=== PATIENT | female | born 1955 | race Caucasian/White ===

== ENCOUNTER → 2016-07-28 | Day surgery (SDC) | payer BC ==
[~2016-07-28] MED LIST: Lactated Ringers 1,000 ML IV SCH
[2016-07-28 11:10] VITALS: BP 146/69
--- NOTE | 2016-07-31 07:20 | OR ---
DATE OF OPERATION: 07/28/2016 PREOPERATIVE DIAGNOSIS: SCREENING COLONOSCOPY. POSTOPERATIVE DIAGNOSIS: SCREENING COLONOSCOPY. SURGEON: Regulo Nguyen MD PROCEDURE: FULL-LENGTH COLONOSCOPY WITH SNARE POLYPECTOMY X1. 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 COMPLICATIONS: None. SPECIMEN: Cecal tubular adenoma. FINDINGS: 1. Full-length colonoscopy. 2. Extremely poor prep. 3. Cecal polyp tubular adenoma, less than 0.5 cm. RECOMMENDATIONS: Follow up colonoscopy in five years. INDICATIONS: The patient has had a prior colonoscopy 10 years ago. She was recommended to have a followup screening. DESCRIPTION OF PROCEDURE: The patient was prepped and draped, placed in the left lateral decubitus position. A lubricated Olympus colonoscope was inserted and relatively easily advanced to the cecum. The patient had extremely poor bowel prep especially in the right colon. We irrigated through the cecum and many times we were able to see a polyp in just outside the cecal pouch, was inside a haustral fold, quite deep, it was a smaller tubular adenoma less than 0.5 cm removed with a snare and we were able to suction into the polyp in the trap number one. She did have a lot of persistent stool coming from the valve which made it difficult to see after removal, but we do have the polyp in the trap. We could see in the rest of the ascending and transverse colon. There were no other gross abnormalities or polyps, although it was difficult due to the amount of stool. The left side of the colon showed no signs of any polyps, mass, ulceration, or bleeding sites. There were no vascular abnormalities or signs of colitis. The patient had no further polyp formation that we could find on the left colon, but she does have mild to moderate sigmoid diverticular disease without inflammatory change. The rectal vault appeared benign. Retroflexion of the scope in the rectum showed no anal lesions. Air was then suctioned and scope removed without complication. KAREEN/YARA /[id number]
== END ==
LOC: CC.SDS 08:33
PROVIDERS: ATTEND Family Medicine
DX: Z12.11 Encounter for screening for malignant neoplasm of colon (principal); K57.30 Diverticulosis of large intestine without perforation or abscess without bleeding; I10 Essential (primary) hypertension; E78.5 Hyperlipidemia, unspecified; J18.9 Pneumonia, unspecified organism; E55.9 Vitamin D deficiency, unspecified; E04.1 Nontoxic single thyroid nodule; E66.9 Obesity, unspecified; Z88.8 Allergy status to other drugs, medicaments and biological substances; Z79.899 Other long term (current) drug therapy; Z98.890 Other specified postprocedural states; Z72.0 Tobacco use
CPT/HCPCS: 45385; J7120

== ENCOUNTER 2018-01-27 07:08 | Emergency (ER) | payer BC ==
[~2018-01-27 07:08] MED LIST changes: +Albuterol/Ipratropium 3.0-0.5 MG/3 ML Neb Soln NEB ONE; -Lactated Ringers 1,000 ML IV SCH
[2018-01-27] MEDS ORDERED: Albuterol/Ipratropium 3.0-0.5 MG/3 ML Neb Soln INH ONE (07:09)
[2018-01-27 07:17] VITALS: BP 156/72
[2018-01-27] MEDS ORDERED: cefTRIAXone 1 GM Vial IM ONE (07:37)
[2018-01-27] MEDS ORDERED: Take Home: Albuterol/Ipratropium 3.0-0.5 MG/3 ML Neb Soln, 4 Neb Pack NEB ONE (07:38)
[2018-01-27] MEDS ORDERED: Lidocaine 1% 20 ML MDV INJECT ONE (07:38)
[2018-01-27] MEDS ORDERED: methylPREDNISolone Sodium Succinate 125 MG/2 ML SDV IM SCH (07:45)
--- NOTE | 2018-01-27 07:47 | EDM.PDOC ---
ED HPI GENERAL MEDICAL PROBLEM - General Chief Complaint: Respiratory Problem Stated Complaint: SOB Time Seen by Provider: 01/27/18 07:30 Source of Information: Reports: Patient History Limitations: Reports: No Limitations - History of Present Illness INITIAL COMMENTS - FREE TEXT/NARRATIVE: Patient Presents to ER with complaints of shortness of breath. Has been having more issues with asthma off an on all week, using her rescue inhalers more. Not sure if triggered by allergies as she has had more sinus congestion. Denies feeling ill other than the breathing concern. No fevers. No ear pain, sore throat. Mild cough, nonproductive. Has noted increased wheezing. Went to work this am and was struggling more so presented here. Onset: Gradual Duration: Day(s):, Getting Worse Location: Reports: Chest Severity: Moderate Improves with: Reports: Rest Associated Symptoms: Reports: Cough, Shortness of Breath. 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(s) (Proair inhaler) - Related Data Allergies Allergy/AdvReac Type Severity Reaction Status Date / Time aspirin Allergy Rash Verified 01/27/18 07:12 brimonidine tartrate Allergy Cannot Verified 01/27/18 07:12 [From Alphagan P] Remember Home Meds: Home Meds Atenolol [Tenormin] 50 mg PO DAILY 06/26/13 [History] Calcium Carb/D3/Magnesium/Zinc [[place] Mag Zinc + D Tablet] 3 each PO DAILY [History] Cholecalciferol (Vitamin D3) [Vitamin D3] 2,000 unit PO DAILY 06/26/13 [History] Estradiol 1 mg PO DAILY 06/26/13 [History] Latanoprost [Xalatan 0.005% Ophth Soln] 1 drop EYEBOTH BEDTIME 06/26/13 [History ] Losartan [Cozaar] 100 mg PO DAILY 06/26/13 [History] Lutein 20 mg PO DAILY 06/26/13 [History] Multivitamin/Iron/Folic Acid [Centrum Complete Multivit] 1 each PO DAILY [History] Vitamin E 400 unit PO DAILY 06/26/13 [History] amLODIPine [Norvasc] 5 mg PO DAILY 06/26/13 [History] Albuterol Sulfate [Proair Hfa] 2 puff INH Q6H PRN 07/27/16 [History] Past Medical History HEENT History: Reports: Cataract Cardiovascular History: Reports: Hypertension Respiratory History: Reports: Asthma - Past Surgical History HEENT Surgical History: Reports: Tonsillectomy Female Surgical History: Reports: Hysterectomy Social & Family History - Family History Family Medical History: Noncontributory - Tobacco Use Smoking Status *Q: Never Smoker - Recreational Drug Use Recreational Drug Use: No - Living Situation & Occupation Living situation: Reports: Single, Alone ED ROS GENERAL - Review of Systems Review Of Systems: See Below Constitutional: Denies: Fever, Chills, Malaise, Weakness, Decreased Appetite HEENT: Reports: Rhinitis. Denies: Ear Pain, Sinus Problem, Throat Pain, Vertigo Respiratory: Reports: Shortness of Breath, Wheezing, Cough Cardiovascular: Denies: Chest Pain, Edema, Lightheadedness Endocrine: Denies: Fatigue GI/Abdominal: Denies: Abdominal Pain, Nausea, Vomiting : Reports: No Symptoms Musculoskeletal: Reports: No Symptoms Skin: Reports: No Symptoms Neurological: Reports: No Symptoms ED EXAM, GENERAL - Physical Exam Exam: See Below Exam Limited By: No Limitations General Appearance: Alert, WD/WN, Mild Distress Ears: Normal External Exam, Normal TMs Nose: Normal Inspection, Normal Mucosa, No Blood, Clear Rhinorrhea Throat/Mouth: Normal Inspection, Normal Oropharynx Head: Normocephalic Neck: Normal Inspection, Supple Respiratory/Chest: Decreased Breath Sounds, Wheezing Cardiovascular: Regular Rate, Rhythm GI/Abdominal: Normal Bowel Sounds, Soft, Non-Tender Neurological: Alert, Oriented Skin Exam: Warm, Dry Course - Vital Signs Last Recorded V/S: Last Vital Signs Temp 98.7 F 01/27/18 07:14 Pulse 74 01/27/18 07:14 Resp 25 H 01/27/18 07:14 BP 156/72 H 01/27/18 07:14 Pulse Ox 98 01/27/18 07:14 - Orders/Labs/Meds Orders: Active Orders 24 hr Category Date Time Status RT Aerosol Therapy [RC] ASDIRECTED Care 01/27/18 07:44 Active methylPREDNISolone Sod Succ [Solu-MEDROL] Med 01/27/18 07:45 Ordered 125 mg IM Q24H Medication Orders Methylprednisolone Sodium Succinate (Solu-Medrol) 125 mg IM Q24H REUBEN Last Admin: 01/27/18 07:48 Dose: 125 mg Meds: Medications Generic Name Dose Route Start Last Admin Trade Name Freq PRN Reason Stop Dose Admin Methylprednisolone Sodium Succinate 125 mg 01/27/18 07:45 01/27/18 07:48 Solu-Medrol IM 125 mg Q24H REUBEN Administration Discontinued Medications Generic Name Dose Route Start Last Admin Trade Name Freq PRN Reason Stop Dose Admin Albuterol/Ipratropium 1 packet 01/27/18 07:38 01/27/18 07:48 Take Home: Albuterol/Ipratropium, 4 Neb Pack NEB 01/27/18 07:39 1 packet ONETIME ONE Administration Albuterol/Ipratropium 3 ml 01/27/18 07:08 01/27/18 07:45 Duoneb 3.0-0.5 Mg/3 Ml NEB 01/27/18 07:09 3 ml ONETIME ONE Administration Ceftriaxone Sodium 1 gm 01/27/18 07:37 01/27/18 07:48 Rocephin IM 01/27/18 07:38 1 gm ONETIME ONE Administration Lidocaine HCl 20 ml 01/27/18 07:38 01/27/18 07:48 Xylocaine 1% INJECT 01/27/18 07:39 20 ml ONETIME ONE Administration - Re-Assessments/Exams Free Text/Narrative Re-Assessment/Exam: 01/27/18 07:59 Much improvement after the DuoNeb. Lungs are now diminished but clear. Injections given. Will have patient get the neb machine from her brother so can utilize treatments at home as needed today. Departure - Departure Time of Disposition: 07:41 Disposition: Home, Self-Care 01 Condition: Good Clinical Impression: Exacerbation of asthma - Discharge Information *PRESCRIPTION DRUG MONITORING PROGRAM REVIEWED*: No *COPY OF PRESCRIPTION DRUG MONITORING REPORT IN PATIENT LISE: No Referrals: Wily Greenberg MD [Primary Care Provider] - Forms: ED Department Discharge Additional Instructions: 1. Push fluids 2. Rest 3. Prednisone 20 mg- 2 tabs daily for 4 days starting tomorrow 4. DuoNebs four times a day as needed for wheezing 5. ProAir inhaler for rescue 6. Follow up if persisting concerns. - My Orders Last 24 Hours: My Active Orders 01/27/18 07:44 RT Aerosol Therapy [RC] ASDIRECTED 01/27/18 07:45 methylPREDNISolone Sod Succ [Solu-MEDROL] 125 mg IM Q24H - Assessment/Plan Last 24 Hours: My Active Orders 01/27/18 07:44 RT Aerosol Therapy [RC] ASDIRECTED 01/27/18 07:45 methylPREDNISolone Sod Succ [Solu-MEDROL] 125 mg IM Q24H
== END 2018-01-27 07:58 | disposition home or self-care (01) ==
LOC: CC.ED 07:08
DX: J45.901 Unspecified asthma with (acute) exacerbation (principal); I10 Essential (primary) hypertension; Z88.8 Allergy status to other drugs, medicaments and biological substances; Z79.899 Other long term (current) drug therapy
CPT/HCPCS: 94640; A9270; J0696; J2930; J7620-GY

== ENCOUNTER 2018-02-17 07:13 | Emergency (ER) | payer BC ==
[2018-02-17 07:21] VITALS: BP 153/76
[2018-02-17] MEDS ORDERED: Albuterol/Ipratropium 3.0-0.5 MG/3 ML Neb Soln NEB ONE (07:24)
[2018-02-17] MEDS ORDERED: Take Home: Albuterol/Ipratropium 3.0-0.5 MG/3 ML Neb Soln, 4 Neb Pack NEB ONE (07:48)
--- NOTE | 2018-02-17 07:56 | EDM.PDOC ---
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 - Related Data Allergies Allergy/AdvReac Type Severity Reaction Status Date / Time aspirin Allergy Rash Verified 02/17/18 07:14 azithromycin Allergy Diarrhea Verified 02/17/18 07:47 brimonidine tartrate Allergy Cannot Verified 02/17/18 07:14 [From Leelee Silva] Remember Home Meds: Home Meds Atenolol [Tenormin] 50 mg PO DAILY 06/26/13 [History] Calcium Carb/D3/Magnesium/Zinc [[place] Mag Zinc + D Tablet] 3 each PO DAILY [History] Cholecalciferol (Vitamin D3) [Vitamin D3] 2,000 unit PO DAILY 06/26/13 [History] Estradiol 1 mg PO DAILY 06/26/13 [History] Latanoprost [Xalatan 0.005% Ophth Soln] 1 drop EYEBOTH BEDTIME 06/26/13 [History ] Losartan [Cozaar] 100 mg PO DAILY 06/26/13 [History] Lutein 20 mg PO DAILY 06/26/13 [History] Multivitamin/Iron/Folic Acid [Centrum Complete Multivit] 1 each PO DAILY [History] Vitamin E 400 unit PO DAILY 06/26/13 [History] amLODIPine [Norvasc] 5 mg PO DAILY 06/26/13 [History] Albuterol Sulfate [Proair Hfa] 2 puff INH Q6H PRN 07/27/16 [History] Past Medical History HEENT History: Reports: Cataract Cardiovascular History: Reports: Heart Murmur, Hypertension Respiratory History: Reports: Asthma Gastrointestinal History: Reports: None Genitourinary History: Reports: None - Past Surgical History HEENT Surgical History: Reports: Laser Surgery, Tonsillectomy Cardiovascular Surgical History: Reports: None Respiratory Surgical History: Reports: None GI Surgical History: Reports: Colonoscopy, Polypectomy Female Surgical History: Reports: Hysterectomy Social & Family History - Family History Family Medical History: Noncontributory - Tobacco Use Smoking Status *Q: Never Smoker Second Hand Smoke Exposure: No - Caffeine Use Caffeine Use: Reports: Soda - Recreational Drug Use Recreational Drug Use: No - Living Situation & Occupation Living situation: Reports: Single, Alone ED ROS GENERAL - Review of Systems Review Of Systems: See Below Constitutional: Reports: Fever, Chills, Decreased Appetite HEENT: Reports: Ear Pain Respiratory: Reports: Shortness of Breath Cardiovascular: Denies: Chest Pain, Dyspnea on Exertion, Palpitations, Syncope Endocrine: Reports: Fatigue GI/Abdominal: Denies: Abdominal Pain, Diarrhea, Nausea, Vomiting Musculoskeletal: Denies: Neck Pain Skin: Denies: Cyanosis, Rash ED EXAM, GENERAL - Physical Exam Exam: See Below Exam Limited By: No Limitations General Appearance: Alert, WD/WN, No Apparent Distress Ear Exam: Bilateral Ear: Bleeding Nose: Nasal Drainage Throat/Mouth: Normal Inspection, Normal Oropharynx Head: Atraumatic, Normocephalic Neck: Normal Inspection, Supple, Non-Tender, Full Range of Motion Respiratory/Chest: No Respiratory Distress, Lungs Clear, Normal Breath Sounds, No Accessory Muscle Use, Chest Non-Tender, Other (initially tachypnic however resolved after duoneb) Cardiovascular: Normal Peripheral Pulses, Regular Rate, Rhythm, Systolic Murmur , Other (reports murmur is not new) Peripheral Pulses: 2+: Radial (L), Radial (R) GI/Abdominal: Soft Neurological: Alert, Oriented Skin Exam: Warm, Dry, Intact, Normal Color, No Rash Lymphatic: No Adenopathy Course - Vital Signs Last Recorded V/S: Last Vital Signs Temp 39.1 C H 02/17/18 07:18 Pulse 90 02/17/18 07:18 Resp 24 H 02/17/18 07:18 BP 153/76 H 02/17/18 07:18 Pulse Ox 94 L 02/17/18 07:18 - Orders/Labs/Meds Orders: Active Orders 24 hr Category Date Time Status RT Aerosol Therapy [RC] ASDIRECTED Care 02/17/18 07:24 Active Albuterol/Ipratropium [Take Home: Albuterol/Ipratropium Med 02/17/18 07:48 Once , 4 Neb Pack] 3 packet NEB ONETIME ONE Meds: Medications Discontinued Medications Generic Name Dose Route Start Last Admin Trade Name Jonathan PRN Reason Stop Dose Admin Albuterol/Ipratropium 3 ml 02/17/18 07:24 02/17/18 07:28 Duoneb 3.0-0.5 Mg/3 Ml NEB 02/17/18 07:25 3 ml ONETIME ONE Administration Departure - Departure Time of Disposition: 07:52 Disposition: Home, Self-Care 01 Condition: Good Clinical Impression: Asthma exacerbation - Discharge Information *PRESCRIPTION DRUG MONITORING PROGRAM REVIEWED*: Not Applicable *COPY OF PRESCRIPTION DRUG MONITORING REPORT IN PATIENT LISE: Not Applicable Instructions: Upper Respiratory Infection, Adult, [id number], Asthma, Adult, [id number] - Problem List Review Problem List Initiated/Reviewed/Updated: Yes - My Orders Last 24 Hours: My Active Orders 02/17/18 07:24 RT Aerosol Therapy [RC] ASDIRECTED 02/17/18 07:48 Albuterol/Ipratropium [Take Home: Albuterol/Ipratropium, 4 Neb Pack] 3 packet NEB ONETIME ONE - Assessment/Plan Last 24 Hours: My Active Orders 02/17/18 07:24 RT Aerosol Therapy [RC] ASDIRECTED 02/17/18 07:48 Albuterol/Ipratropium [Take Home: Albuterol/Ipratropium, 4 Neb Pack] 3 packet NEB ONETIME ONE Assessment:: asthma exacerbation appears to have been brought about by a mild, viral URI. duoneb here in ED resolved patient's tachypnea and complaint of SOB. her exam is overall without acute findings. patient given duoneb take home pack and nebulizer machine. advised patient to rest, hydrate, take all Rx as directed, fu with pcp in 3-5 days, OTC cough / cold remedies prn symptoms, go to ER if change or worse. Patient reports understanding and agreement with plan. DC home stable.
== END 2018-02-17 08:15 | disposition home or self-care (01) ==
LOC: CC.ED 07:13
DX: J45.901 Unspecified asthma with (acute) exacerbation (principal); I10 Essential (primary) hypertension; Z79.899 Other long term (current) drug therapy; Z88.6 Allergy status to analgesic agent; Z88.1 Allergy status to other antibiotic agents; Z88.8 Allergy status to other drugs, medicaments and biological substances
CPT/HCPCS: 94640; 99284; A9270-GY; J7620-GY

== ENCOUNTER 2019-01-25 07:35 | Emergency (ER) | payer BC ==
[2019-01-25 07:37] VITALS: BP 158/63; PULSE 66
[2019-01-25] MEDS ORDERED: Meclizine 12.5 MG Tab ONE (07:44)
[2019-01-25] MEDS ORDERED: Meclizine 12.5 MG Tab PO ONE (07:54)
--- NOTE | 2019-01-25 07:58 | EDM.PDOC ---
ED HPI GENERAL MEDICAL PROBLEM - General Chief Complaint: Gastrointestinal Problem Stated Complaint: Dizziness, Nausea Time Seen by Provider: 01/25/19 07:49 Source of Information: Reports: Patient History Limitations: Reports: No Limitations - History of Present Illness INITIAL COMMENTS - FREE TEXT/NARRATIVE: in with c/o woke up this am not feeling well, had severe dizziness, was very unsteady, had some NV, no change in vision, no ear, nose or throat sx, no unusual neck/back pain or stiffness, no cp, pressure or heaviness, no palpitations or irregular heart beat, no abd pain, no UTI sx, no fever or chills , advised has never had similar sx Onset: Today, Sudden Duration: Hour(s): Location: Reports: Head Severity: Severe Improves with: Reports: None Worsens with: Reports: Other, Movement Associated Symptoms: Reports: Nausea/Vomiting, Weakness. 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: Reports: Other (see below) (none) - Related Data Allergies Allergy/AdvReac Type Severity Reaction Status Date / Time aspirin Allergy Rash Verified 01/25/19 07:52 azithromycin Allergy Diarrhea Verified 01/25/19 07:52 brimonidine tartrate Allergy Cannot Verified 01/25/19 07:52 [From Leelee Silva] Remember Home Meds: Home Meds Atenolol [Tenormin] 50 mg PO DAILY 06/26/13 [History] Calcium Carb/D3/Magnesium/Zinc [[place] Mag Zinc + D Tablet] 3 each PO DAILY [History] Cholecalciferol (Vitamin D3) [Vitamin D3] 2,000 unit PO DAILY 06/26/13 [History] Estradiol 1 mg PO DAILY 06/26/13 [History] Latanoprost [Xalatan 0.005% Ophth Soln] 1 drop EYEBOTH BEDTIME 06/26/13 [History ] Losartan [Cozaar] 100 mg PO DAILY 06/26/13 [History] Lutein 20 mg PO DAILY 06/26/13 [History] Multivitamin/Iron/Folic Acid [Centrum Complete Multivit] 1 each PO DAILY [History] Vitamin E 400 unit PO DAILY 06/26/13 [History] amLODIPine [Norvasc] 5 mg PO DAILY 06/26/13 [History] Albuterol Sulfate [Proair Hfa] 2 puff INH Q6H PRN 07/27/16 [History] Meclizine [Antivert] 25 mg PO Q8H PRN 5 Days #24 tab 01/25/19 [Rx] Past Medical History HEENT History: Reports: Cataract Cardiovascular History: Reports: Heart Murmur, Hypertension Respiratory History: Reports: Asthma Gastrointestinal History: Reports: None Genitourinary History: Reports: None - Past Surgical History HEENT Surgical History: Reports: Laser Surgery, Tonsillectomy Cardiovascular Surgical History: Reports: None Respiratory Surgical History: Reports: None GI Surgical History: Reports: Colonoscopy, Polypectomy Female Surgical History: Reports: Hysterectomy Social & Family History - Family History Family Medical History: Noncontributory - Caffeine Use Caffeine Use: Reports: Soda - Living Situation & Occupation Living situation: Reports: Single, Alone ED ROS GENERAL - Review of Systems Review Of Systems: See Below Constitutional: Reports: No Symptoms. Denies: Fever, Chills HEENT: Reports: No Symptoms Respiratory: Reports: No Symptoms. Denies: Shortness of Breath Cardiovascular: Reports: No Symptoms. Denies: Chest Pain, Palpitations Endocrine: Reports: No Symptoms GI/Abdominal: Reports: Nausea, Vomiting. Denies: Abdominal Pain, Diarrhea : Reports: No Symptoms Musculoskeletal: Reports: No Symptoms. Denies: Neck Pain Skin: Reports: No Symptoms Neurological: Reports: Dizziness Psychiatric: Reports: No Symptoms ED EXAM, DIZZINESS - Physical Exam Exam: See Below Exam Limited By: No Limitations General Appearance: Alert, WD/WN, No Apparent Distress, Other (morbid obesity) Eye Exam: Bilateral Eye: Abnormal EOM, Abnormal Pupil Nystagmus: worsens with head to L, worsens with head to R Ears: Normal External Exam, Normal Canal, Hearing Grossly Normal, Normal TMs. No: Hearing Loss Nose: Normal Inspection Throat/Mouth: Normal Inspection, Normal Lips, Normal Oropharynx, Normal Voice, No Airway Compromise Head Exam: Atraumatic, Normocephalic Neck: Normal Inspection, Supple, Non-Tender, Full Range of Motion Respiratory/Chest: No Respiratory Distress, Lungs Clear, Normal Breath Sounds Cardiovascular: Normal Peripheral Pulses, Regular Rate, Rhythm GI/Abdominal: Soft, Non-Tender Rectal (Female) Exam: Normal Exam Neurological: Alert, Normal Mood/Affect, CN II-XII Intact, Normal Plantar Flexion, Normal Gait, Normal Reflexes, No Motor/Sensory Deficits, Oriented x 3, Other (no hwang drift, normal finger to nose and finger to finger) Back Exam: Normal Inspection, Full Range of Motion Extremities: Normal Inspection, Normal Range of Motion, Non-Tender, No Pedal Edema, Normal Capillary Refill Psychiatric: Normal Affect, Normal Mood Skin Exam: Warm, Dry, Intact, Normal Color EKG INTERPRETATION EKG Date: 01/25/19 Time: 08:20 Rhythm: NSR [place]: LAD-Left [place] Deviation P-Wave: Present QRS: Normal ST-T: Normal QT: Normal EKG Interpretation Comments: SR with a left axis deviation, no injury or ischemia noted Course - Vital Signs Last Recorded V/S: Last Vital Signs Temp 36.6 C 01/25/19 07:36 Pulse 66 01/25/19 07:36 Resp 18 01/25/19 07:36 BP 158/63 H 01/25/19 07:36 Pulse Ox 96 01/25/19 07:36 Orthostatic Blood Pressure [ 152/67 Standing] Orthostatic Blood Pressure [ 148/63 Sitting] Orthostatic Blood Pressure [ 150/61 Supine] - Orders/Labs/Meds Orders: Active Orders 24 hr Category Date Time Status EKG Documentation Completion [RC] URGENT Care 01/25/19 08:36 Active Head wo Cont [CT] Stat Exams 01/25/19 07:53 Taken Labs: Laboratory Tests 01/25/19 01/25/19 Range/Units 08:00 08:00 WBC 8.3 (5.0-10.0) 10^3/uL RBC 5.01 (4.00-5.50) 10^6/uL Hgb 15.4 (12.0-16.0) g/dL Hct 46.4 (37.0-47.0) % MCV 92.6 (82.0-94.0) fL MCH 30.7 (27.0-32.0) pg MCHC 33.2 (33.0-38.0) g/dL RDW Coeff of Ave 14.2 (11.0-15.0) % Plt Count 264 (150-400) 10^3/uL Neut % (Auto) 78.9 (35-85) % Lymph % (Auto) 14.7 (10-55) % [place] % (Auto) 5.5 (0-16) % Eos % (Auto) 0.5 (0-5) % Baso % (Auto) 0.4 (0-3) % Neut # (Auto) 6.58 (1.80-7.00) 10^3/uL Lymph # (Auto) 1.23 (1.00-4.80) 10^3/uL [place] # (Auto) 0.46 (0.00-0.80) 10^3/uL Eos # (Auto) 0.04 (0.00-0.45) 10^3/uL Baso # (Auto) 0.03 10^3/uL Sodium 138 (136-145) mEq/L Potassium 4.2 (3.5-5.0) mEq/L Chloride 100 (98-106) mEq/L Carbon Dioxide 29 (21-32) mmol/L BUN 26 H (7-18) mg/dL Creatinine 0.7 (0.6-1.0) mg/dL Est Cr Clr Drug Dosing 62.88 mL/min Estimated GFR (MDRD) > 60 (>=60) mL/min Glucose 131 H (75-99) mg/dL Calcium 9.5 (8.4-10.1) mg/dL Total Bilirubin 0.5 (0.0-1.0) mg/dL AST 18 (15-37) U/L ALT 23 (12-78) U/L Alkaline Phosphatase 68 (46-116) U/L Troponin I < 0.017 (0.00-0.06) ng/mL Total Protein 7.9 (6.4-8.2) g/dL Albumin 3.6 (3.4-5.0) g/dL Meds: Medications Discontinued Medications Generic Name Dose Route Start Last Admin Trade Name Cesarq PRN Reason Stop Dose Admin Meclizine HCl 25 mg 01/25/19 07:54 01/25/19 07:57 Antivert PO 01/25/19 07:55 25 mg ONETIME ONE Administration Meclizine HCl Confirm 01/25/19 07:44 Antivert Administered 01/25/19 07:45 Dose 25 mg .ROUTE .STK-MED ONE Departure - Departure Time of Disposition: 09:16 Disposition: Home, Self-Care 01 Condition: Good Clinical Impression: Vertigo - Discharge Information *PRESCRIPTION DRUG MONITORING PROGRAM REVIEWED*: Not Applicable *COPY OF PRESCRIPTION DRUG MONITORING REPORT IN PATIENT LISE: Not Applicable Prescriptions: Meclizine [Antivert] 25 mg PO Q8H PRN 5 Days #24 tab PRN Reason: Dizziness Instructions: Vertigo, [id number], Dizziness Referrals: Pamela Bowman COST ANALYST [Primary Care Provider] - Forms: ED Department Discharge Additional Instructions: rest change positions slowly Antivert 25mg every 8 hours as needed for dizziness follow up with your family doctor this week for further evaluation and treatment return to the ER sooner if worse or problems - Problem List & Annotations (1) Vertigo SNOMED Code(s): 703407505 Code(s): R42 - DIZZINESS AND GIDDINESS Status: Acute Priority: Medium Current Visit: Yes - Problem List Review Problem List Initiated/Reviewed/Updated: Yes - My Orders Last 24 Hours: My Active Orders 01/25/19 07:53 Head wo Cont [CT] Stat 01/25/19 08:36 EKG Documentation Completion [RC] URGENT - Assessment/Plan Last 24 Hours: My Active Orders 01/25/19 07:53 Head wo Cont [CT] Stat 01/25/19 08:36 EKG Documentation Completion [RC] URGENT Assessment:: was seen in the ED, CBC, CMP and Trop are neg, CT brain neg, EKG neg, Tilt test neg, pt given Antivert 25mg which has significantly helped the pt, will dc home , see dc instructions
[2019-01-25 08:22] LABS: CHLORIDE,CL 100 mEq/L (98-106); SODIUM,NA 138 mEq/L (136-145)
== END 2019-01-25 09:35 | disposition home or self-care (01) ==
LOC: CC.ED 07:35
DX: R42 Dizziness and giddiness (principal); I10 Essential (primary) hypertension; J45.909 Unspecified asthma, uncomplicated; Z88.6 Allergy status to analgesic agent; Z88.1 Allergy status to other antibiotic agents; Z88.8 Allergy status to other drugs, medicaments and biological substances; Z79.899 Other long term (current) drug therapy
CPT/HCPCS: 36415; 70450; 80053; 84484; 85025; 93005; 99284-25; A9270-GY

== ENCOUNTER 2019-05-19 11:39 | Observation (INO) | payer BC ==
[2019-05-19] MEDS ORDERED: Albuterol/Ipratropium 3.0-0.5 MG/3 ML Neb Soln NEB ONE (12:10)
--- NOTE | 2019-05-19 12:16 | EDM.PDOC ---
ED HPI GENERAL MEDICAL PROBLEM - General Chief Complaint: Respiratory Problem Stated Complaint: TROUBLE BREATHING Time Seen by Provider: 05/19/19 12:08 Source of Information: Reports: Patient History Limitations: Reports: No Limitations - History of Present Illness INITIAL COMMENTS - FREE TEXT/NARRATIVE: This patient is a 63 year old female that presents to the ER. Patient reports started this weekend with shortness of breath. She reports that she started early this morning with tightness in her chest and someone sitting on her chest sensation around 9am this morning while at work. She reports that she has swelling in her legs, but this has been worse than normal last day. Patient reports that laying down to sleep has been difficult and she has had to sit up on side of bed to catch her breath the last couple of days. Patient reports that when she arrived to the ER, the RN put oxygen on her and this seemed to help her. Onset Date: 05/17/19 Duration: Day(s): (2) Location: Reports: Chest Quality: Reports: Other ("tightness, someone sitting on chest") Severity: Moderate Improves with: Reports: None Worsens with: Reports: None Associated Symptoms: Reports: Chest Pain, Cough, Shortness of Breath. Denies: Confusion, cough w sputum, Diaphoresis, Fever/Chills, Headaches, Loss of Appetite, Malaise, Nausea/Vomiting, Rash, Seizure, Syncope, Weakness - Related Data Allergies Allergy/AdvReac Type Severity Reaction Status Date / Time aspirin Allergy Rash Verified 01/25/19 07:52 azithromycin Allergy Diarrhea Verified 01/25/19 07:52 brimonidine tartrate Allergy Cannot Verified 01/25/19 07:52 [From [facility] P] Remember Home Meds: Home Meds Atenolol [Tenormin] 50 mg PO DAILY 06/26/13 [History] Calcium Carb/D3/Magnesium/Zinc [[place] Mag Zinc + D Tablet] 3 each PO DAILY [History] Cholecalciferol (Vitamin D3) [Vitamin D3] 2,000 unit PO DAILY 06/26/13 [History] Latanoprost [Xalatan 0.005% Ophth Soln] 1 drop EYEBOTH BEDTIME 06/26/13 [History ] Losartan [Cozaar] 100 mg PO DAILY 06/26/13 [History] Lutein 20 mg PO DAILY 06/26/13 [History] Multivitamin/Iron/Folic Acid [Centrum Complete Multivit] 1 each PO DAILY [History] Vitamin E 400 unit PO DAILY 06/26/13 [History] amLODIPine [Norvasc] 5 mg PO DAILY 06/26/13 [History] estradioL [Estradiol] 1 mg PO DAILY 06/26/13 [History] Albuterol Sulfate [Proair Hfa] 2 puff INH Q6H PRN 07/27/16 [History] Meclizine [Antivert] 25 mg PO Q8H PRN 5 Days #24 tab 01/25/19 [Rx] Past Medical History HEENT History: Reports: Cataract, Glaucoma Cardiovascular History: Reports: Heart Murmur, Hypertension Respiratory History: Reports: Asthma Gastrointestinal History: Reports: None Genitourinary History: Reports: None Musculoskeletal History: Reports: Arthritis Oncologic (Cancer) History: Reports: None - Past Surgical History HEENT Surgical History: Reports: Laser Surgery, Tonsillectomy Cardiovascular Surgical History: Reports: None Respiratory Surgical History: Reports: None GI Surgical History: Reports: Colonoscopy, Polypectomy Female Surgical History: Reports: Hysterectomy Oncologic Surgical History: Reports: Lumpectomy Social & Family History - Family History Family Medical History: Noncontributory - Caffeine Use Caffeine Use: Reports: Soda - Living Situation & Occupation Living situation: Reports: Single, Alone ED ROS GENERAL - Review of Systems Review Of Systems: See Below Constitutional: Reports: No Symptoms HEENT: Reports: No Symptoms Respiratory: Reports: Shortness of Breath, Cough. Denies: Sputum Cardiovascular: Reports: Chest Pain, Dyspnea on Exertion, Edema Endocrine: Reports: No Symptoms GI/Abdominal: Reports: No Symptoms : Reports: No Symptoms Musculoskeletal: Reports: No Symptoms Skin: Reports: No Symptoms Neurological: Reports: No Symptoms Psychiatric: Reports: No Symptoms Hematologic/Lymphatic: Reports: No Symptoms Immunologic: Reports: No Symptoms ED EXAM, GENERAL - Physical Exam Exam: See Below Exam Limited By: No Limitations General Appearance: Alert, WD/WN, Moderate Distress, Obese, Other (appears chronically ill, obese. ) Eye Exam: Bilateral Eye: Normal Inspection, PERRL Ears: Normal External Exam, Normal Canal, Hearing Grossly Normal, Normal TMs Ear Exam: Bilateral Ear: Auricle Normal, Canal Normal, TM normal Nose: Normal Inspection, Normal Mucosa, No Blood Throat/Mouth: Normal Inspection, Normal Lips, Normal Teeth, Normal Gums, Normal Oropharynx, Normal Voice, No Airway Compromise Head: Atraumatic, Normocephalic Neck: Normal Inspection, Supple, Non-Tender, Full Range of Motion Respiratory/Chest: Decreased Breath Sounds (moderately throughout), Other ( sitting up on edge of bed. ) Cardiovascular: Normal Peripheral Pulses, Regular Rate, Rhythm, No Gallop, No JVD, No Rub, Systolic Murmur, Other (BLE edema with fluid leakage +4.) Peripheral Pulses: 2+: Radial (L), Radial (R), Posterior Tibial (L), Posterior Tibial (R) GI/Abdominal: Soft, Non-Tender Back Exam: Normal Inspection, Full Range of Motion Extremities: Normal Inspection, Normal Range of Motion, Non-Tender, Normal Capillary Refill, Pedal Edema (+4 BLE with fluid leakage.) Neurological: Alert, Oriented Psychiatric: Normal Affect, Normal Mood Skin Exam: Warm, Dry, Intact, Normal Color, No Rash Lymphatic: No Adenopathy EKG INTERPRETATION EKG Date: 05/19/19 Time: 12:17 Rhythm: NSR Rate (Beats/Min): 64 [place]: Normal P-Wave: Present QRS: Normal ST-T: Normal QT: Normal Comparison: No Change Course - Vital Signs Last Recorded V/S: Last Vital Signs Temp 97.9 F 05/19/19 11:49 Pulse 98 05/19/19 11:49 Resp 22 H 05/19/19 11:49 BP Pulse Ox 96 05/19/19 11:49 - Orders/Labs/Meds Orders: Active Orders 24 hr Category Date Time Status Patient Status Manage Transfer [TRANSFER] Routine ADT 05/19/19 14:09 Ordered Cardiac Monitoring [RC] . DIRECTED Care 05/19/19 12:10 Active RT Aerosol Therapy [RC] ASDIRECTED Care 05/19/19 12:10 Active Chest 2V [CR] Stat Exams 05/19/19 12:09 Taken CULTURE BLOOD [BC] Stat Lab 05/19/19 12:29 Received CULTURE BLOOD [BC] Stat Lab 05/19/19 12:29 Results TROPONIN I [CHEM] Stat Lab 05/19/19 15:00 Ordered Blood Culture x2 Reflex Set [OM.PC] Stat Oth 05/19/19 12:08 Ordered Resuscitation Status Routine Resus Stat 05/19/19 14:10 Ordered Labs: Laboratory Tests 05/19/19 05/19/19 05/19/19 Range/Units 12:29 12:29 12:29 WBC 9.7 (5.0-10.0) 10^3/uL RBC 4.69 (4.00-5.50) 10^6/uL Hgb 14.1 (12.0-16.0) g/dL Hct 43.2 (37.0-47.0) % MCV 92.1 (82.0-94.0) fL MCH 30.1 (27.0-32.0) pg MCHC 32.6 L (33.0-38.0) g/dL RDW Coeff of Ave 14.3 (11.0-15.0) % Plt Count 242 (150-400) 10^3/uL Neut % (Auto) 69.8 (35-85) % Lymph % (Auto) 17.8 (10-55) % [place] % (Auto) 10.5 (0-16) % Eos % (Auto) 1.6 (0-5) % Baso % (Auto) 0.3 (0-3) % Neut # (Auto) 6.77 (1.80-7.00) 10^3/uL Lymph # (Auto) 1.73 (1.00-4.80) 10^3/uL [place] # (Auto) 1.02 H (0.00-0.80) 10^3/uL Eos # (Auto) 0.16 (0.00-0.45) 10^3/uL Baso # (Auto) 0.03 10^3/uL Sodium 142 (136-145) mEq/L Potassium 4.0 (3.5-5.0) mEq/L Chloride 102 (98-106) mEq/L Carbon Dioxide 28 (21-32) mmol/L BUN 19 H (7-18) mg/dL Creatinine 0.8 (0.6-1.0) mg/dL Est Cr Clr Drug Dosing 57.67 mL/min Estimated GFR (MDRD) > 60 (>=60) mL/min Glucose 96 D (75-99) mg/dL Lactic Acid 1.2 (0.4-2.0) mmol/L Calcium 9.4 (8.4-10.1) mg/dL Total Bilirubin 0.5 (0.0-1.0) mg/dL AST 22 (15-37) U/L ALT 30 (12-78) U/L Alkaline Phosphatase 63 (46-116) U/L Creatine Kinase 120 (21-215) U/L Troponin I < 0.017 (0.00-0.06) ng/mL C-Reactive Protein 1.1 H (0.2-0.8) mg/dL NT-Pro-B Natriuret Pep 476 (0-1000) pg/mL Total Protein 7.9 (6.4-8.2) g/dL Albumin 3.8 (3.4-5.0) g/dL Meds: Medications Discontinued Medications Generic Name Dose Route Start Last Admin Trade Name Freq PRN Reason Stop Dose Admin Albuterol/Ipratropium 3 ml 05/19/19 12:10 05/19/19 12:24 Duoneb 3.0-0.5 Mg/3 Ml NEB 05/19/19 12:11 3 ml ONETIME ONE Administration - Radiology Interpretation Free Text/Narrative:: CXR: Cardiomegaly. No infiltrates. No pulmonary edema. - Re-Assessments/Exams Free Text/Narrative Re-Assessment/Exam: 05/19/19 13:53 Patient does report that after breathing treatment she does feel better. Oxygen was removed from patient and she reports that she does feel better, but feels better with oxygen on. Reviewed patient September 2018 echocardiogram result. Will repeat a troponin. Patient can not lay flat, reports she can not breath. Will admit. Discussed patient with Dr. Nguyen. Departure - Departure Time of Disposition: 14:07 Disposition: Refer to Observation Condition: Fair Clinical Impression: Congestive heart failure Qualifiers: Heart failure type: systolic Heart failure chronicity: acute Qualified Code(s) : I50.21 - Acute systolic (congestive) heart failure Dyspnea Qualifiers: Dyspnea type: orthopnea Qualified Code(s): R06.01 - Orthopnea Chest pain Qualifiers: Chest pain type: unspecified Qualified Code(s): R07.9 - Chest pain, unspecified - Discharge Information *PRESCRIPTION DRUG MONITORING PROGRAM REVIEWED*: Not Applicable *COPY OF PRESCRIPTION DRUG MONITORING REPORT IN PATIENT LISE: Not Applicable Forms: ED Department Discharge Sepsis Event Note - Evaluation Sepsis Screening Result: No Definite Risk - Focused Exam Vital Signs: Vital Signs Temp Pulse Resp Pulse Ox 05/19/19 11:49 97.9 F 98 22 H 96 Date Exam was Performed: 05/19/19 Time Exam was Performed: 14:18 - My Orders Last 24 Hours: My Active Orders 05/19/19 12:08 Blood Culture x2 Reflex Set [OM.PC] Stat 05/19/19 12:09 Chest 2V [CR] Stat 05/19/19 12:10 Cardiac Monitoring [RC] . DIRECTED RT Aerosol Therapy [RC] ASDIRECTED 05/19/19 12:29 CULTURE BLOOD [BC] Stat CULTURE BLOOD [BC] Stat 05/19/19 14:09 Patient Status Manage Transfer [TRANSFER] Routine 05/19/19 14:10 Resuscitation Status Routine 05/19/19 15:00 TROPONIN I [CHEM] Stat - Assessment/Plan Last 24 Hours: My Active Orders 05/19/19 12:08 Blood Culture x2 Reflex Set [OM.PC] Stat 05/19/19 12:09 Chest 2V [CR] Stat 05/19/19 12:10 Cardiac Monitoring [RC] . DIRECTED RT Aerosol Therapy [RC] ASDIRECTED 05/19/19 12:29 CULTURE BLOOD [BC] Stat CULTURE BLOOD [BC] Stat 05/19/19 14:09 Patient Status Manage Transfer [TRANSFER] Routine 05/19/19 14:10 Resuscitation Status Routine 05/19/19 15:00 TROPONIN I [CHEM] Stat Plan: PLEASE SEE RN NOTE FOR PFSH. PLEASE USE ER H&P ADMIT H&P
[2019-05-19 12:55] LABS: CHLORIDE,CL 102 mEq/L (98-106); SODIUM,NA 142 mEq/L (136-145)
[2019-05-19] MEDS ORDERED: Acetaminophen 325 MG Tab PO PRN (14:34)
[2019-05-19] MEDS ORDERED: ALBUTEROL SULFATE INH PRN ×2 (14:34→15:57)
[2019-05-19] MEDS ORDERED: Ondansetron 4 MG/2 ML SDV IV PRN (14:34)
[2019-05-19] MEDS ORDERED: Ibuprofen 200 MG Tab PO PRN (14:34)
[2019-05-19] MEDS ORDERED: Enoxaparin 40 MG/0.4 ML Syringe SUBCUT SCH (16:00)
[2019-05-19] MEDS: Furosemide 40 MG/4 ML VIAL IVPUSH SCH (16:09)
[2019-05-19] MEDS ORDERED: Meclizine 12.5 MG Tab PO PRN (16:29)
[2019-05-19] MEDS: LATANOPROST 0.005% EYEBOTH SCH (19:21)
[2019-05-19] MEDS: Nystatin Topical Powder 15 GM Bottle TOP SCH (20:01)
[2019-05-19] MEDS: Albuterol/Ipratropium 3.0-0.5 MG/3 ML Neb Soln NEB PRN (20:01)
[2019-05-20] MEDS: Multivitamin Tab PO SCH (07:39)
[2019-05-20] MEDS: Vitamin E (dl-alpha-tocopherol acetate) 400 Unit Cap PO SCH (07:39)
[2019-05-20] MEDS: Calcium Carbonate/Magnesium Oxide/Zinc Oxide Tab PO SCH (07:40)
[2019-05-20] MEDS: Cholecalciferol (Vitamin D3) 25 MCG Tab PO SCH (07:40)
[2019-05-20] MEDS: Nystatin Topical Powder 15 GM Bottle TOP SCH ×2 (07:41→19:52)
[2019-05-20] MEDS: LOSARTAN 100 MG PO SCH (07:42)
[2019-05-20] MEDS: ESTRADIOL 1 MG PO SCH (07:43)
[2019-05-20] MEDS: AMLODIPINE 5 MG PO SCH (07:43)
[2019-05-20 07:46] LABS: CHLORIDE,CL 101 mEq/L (98-106); SODIUM,NA 142 mEq/L (136-145)
[2019-05-20] MEDS ORDERED: Non-Formulary Medication 1 Each (Lutein [Lutein] 20 MG) PO SCH (08:00)
[2019-05-20] MEDS ORDERED: Non-Formulary Medication 1 Each (Estradiol [Estradiol] 1 MG) PO SCH (08:00)
[2019-05-20] MEDS ORDERED: Non-Formulary Medication 1 Each (Losartan [Cozaar] 100 MG) PO SCH (08:00)
[2019-05-20] MEDS ORDERED: Non-Formulary Medication 1 Each (Atenolol [Tenormin] 50 MG) PO SCH (08:00)
[2019-05-20] MEDS ORDERED: Non-Formulary Medication 1 Each (Amlodipine [Norvasc] 5 MG) PO SCH (08:00)
[2019-05-20] MEDS ORDERED: ATENOLOL 50 MG PO SCH (08:00)
[2019-05-20] MEDS: Metoprolol Tartrate 25 MG Tab PO SCH ×2 (10:44→21:37)
[2019-05-20] MEDS: Apixaban 5 MG Tab PO SCH ×2 (10:45→19:52)
[2019-05-20] MEDS: Albuterol/Ipratropium 3.0-0.5 MG/3 ML Neb Soln NEB PRN (10:47)
--- NOTE | 2019-05-20 13:39 | PCM.PN ---
- General Info Date of Service: 05/20/19 Admission Dx/Problem (Free Text): Acute CHF Functional Status: Reports: Pain Controlled, Tolerating Diet, Ambulating - Review of Systems General: Reports: Weakness, Fatigue. Denies: Fever, Malaise, Chills HEENT: Reports: No Symptoms Pulmonary: Reports: Shortness of Breath, Cough, Wheezing. Denies: Sputum Cardiovascular: Reports: Edema. Denies: Chest Pain, Lightheadedness Gastrointestinal: Denies: Abdominal Pain, Nausea, Vomiting Genitourinary: Reports: No Symptoms Musculoskeletal: Reports: No Symptoms Skin: Reports: Other (red, irritated area to between and under abdominal folds.) Neurological: Reports: Weakness - Patient Data Vitals - Most Recent: Last Vital Signs Temp 96.8 F 05/20/19 11:57 Pulse 82 05/20/19 11:57 Resp 16 05/20/19 11:57 BP 145/56 H 05/20/19 11:57 Pulse Ox 96 05/20/19 11:57 Weight - Most Recent: 379 lb 3.2 oz I&O - Last 24 Hours: Intake & Output 05/19/19 05/20/19 05/20/19 22:59 06:59 14:59 Intake Total 650 500 400 Output Total 1600 1300 200 Balance -950 -800 200 Lab Results Last 24 Hours: Laboratory Results - last 24 hr 05/19/19 05/20/19 05/20/19 Range/Units 15:00 07:10 07:10 WBC 8.7 (5.0-10.0) 10^3/uL RBC 4.79 (4.00-5.50) 10^6/uL Hgb 14.2 (12.0-16.0) g/dL Hct 44.0 (37.0-47.0) % MCV 91.9 (82.0-94.0) fL MCH 29.6 (27.0-32.0) pg MCHC 32.3 L (33.0-38.0) g/dL RDW Coeff of Ave 14.6 (11.0-15.0) % Plt Count 251 (150-400) 10^3/uL Neut % (Auto) 69.0 (35-85) % Lymph % (Auto) 18.0 (10-55) % [place] % (Auto) 11.3 (0-16) % Eos % (Auto) 1.5 (0-5) % Baso % (Auto) 0.2 (0-3) % Neut # (Auto) 6.02 (1.80-7.00) 10^3/uL Lymph # (Auto) 1.57 (1.00-4.80) 10^3/uL [place] # (Auto) 0.99 H (0.00-0.80) 10^3/uL Eos # (Auto) 0.13 (0.00-0.45) 10^3/uL Baso # (Auto) 0.02 10^3/uL Sodium 142 (136-145) mEq/L Potassium 4.2 (3.5-5.0) mEq/L Chloride 101 (98-106) mEq/L Carbon Dioxide 30 (21-32) mmol/L BUN 19 H (7-18) mg/dL Creatinine 0.7 (0.6-1.0) mg/dL Est Cr Clr Drug Dosing 65.90 mL/min Estimated GFR (MDRD) > 60 (>=60) mL/min Glucose 105 H (75-99) mg/dL Calcium 9.2 (8.4-10.1) mg/dL Magnesium (1.8-2.4) mg/dL Troponin I < 0.017 (0.00-0.06) ng/mL NT-Pro-B Natriuret Pep 293 (0-1000) pg/mL 05/20/19 Range/Units 11:02 WBC (5.0-10.0) 10^3/uL RBC (4.00-5.50) 10^6/uL Hgb (12.0-16.0) g/dL Hct (37.0-47.0) % MCV (82.0-94.0) fL MCH (27.0-32.0) pg MCHC (33.0-38.0) g/dL RDW Coeff of Ave (11.0-15.0) % Plt Count (150-400) 10^3/uL Neut % (Auto) (35-85) % Lymph % (Auto) (10-55) % [place] % (Auto) (0-16) % Eos % (Auto) (0-5) % Baso % (Auto) (0-3) % Neut # (Auto) (1.80-7.00) 10^3/uL Lymph # (Auto) (1.00-4.80) 10^3/uL [place] # (Auto) (0.00-0.80) 10^3/uL Eos # (Auto) (0.00-0.45) 10^3/uL Baso # (Auto) 10^3/uL Sodium (136-145) mEq/L Potassium (3.5-5.0) mEq/L Chloride (98-106) mEq/L Carbon Dioxide (21-32) mmol/L BUN (7-18) mg/dL Creatinine (0.6-1.0) mg/dL Est Cr Clr Drug Dosing mL/min Estimated GFR (MDRD) (>=60) mL/min Glucose (75-99) mg/dL Calcium (8.4-10.1) mg/dL Magnesium 2.3 (1.8-2.4) mg/dL Troponin I < 0.017 (0.00-0.06) ng/mL NT-Pro-B Natriuret Pep (0-1000) pg/mL Mg Results Last 24 Hours: Microbiology 05/19/19 12:29 Aerobic Blood Culture - Preliminary Blood - Venous NO GROWTH AFTER 1 DAY Anaerobic Blood Culture - Preliminary NO GROWTH AFTER 1 DAY 05/19/19 12:29 Aerobic Blood Culture - Preliminary Blood - Venous - Lab Draw NO GROWTH AFTER 1 DAY Anaerobic Blood Culture - Final Med Orders - Current: Current Medications Acetaminophen (Tylenol) 650 mg PO Q4H PRN PRN Reason: Pain (Mild 1-3)/fever Last Admin: 05/20/19 05:33 Dose: 650 mg Albuterol/Ipratropium (Duoneb 3.0-0.5 Mg/3 Ml) 3 ml NEB Q4H PRN PRN Reason: Shortness Of Breath/wheezing Last Admin: 05/20/19 10:47 Dose: 3 ml Apixaban (Eliquis) 5 mg PO BID [facility] Last Admin: 05/20/19 10:45 Dose: 5 mg Calcium/Magnesium/Zinc (Calcium & Magnesium Plus Zinc) 3 tab PO DAILY [facility] Last Admin: 05/20/19 07:40 Dose: 3 tab Cholecalciferol (Vitamin D3) 50 mcg PO DAILY [facility] Last Admin: 05/20/19 07:40 Dose: 50 mcg Estradiol (Estradiol) 1 mg PO DAILY [facility] Last Admin: 05/20/19 07:43 Dose: 1 mg Furosemide (Lasix) 40 mg IVPUSH Q24H [facility] Last Admin: 05/19/19 16:09 Dose: 40 mg Ibuprofen (Motrin) 600 mg PO Q6H PRN PRN Reason: Pain (mild 1-3) Latanoprost (Xalatan 0.005% Ophth Soln) 0 ml EYEBOTH BEDTIME [facility] Last Admin: 05/19/19 19:21 Dose: 1 drop Losartan Potassium (Cozaar) 100 mg PO DAILY [facility] Last Admin: 05/20/19 07:42 Dose: 100 mg Meclizine HCl (Antivert) 25 mg PO Q8H PRN PRN Reason: DIZZINESS Metoprolol Tartrate (Lopressor) 25 mg PO Q12H [facility] Last Admin: 05/20/19 10:44 Dose: Not Given Multivitamins/Minerals/Vitamin C (Tab-A-Carla) 1 tab PO DAILY [facility] Last Admin: 05/20/19 07:39 Dose: 1 tab Nf Med 1 Each ( Albuterol Sulfate [ Proair Hfa] 2 Puff)* *Pt Own Med 2 puff INH Q6H PRN PRN Reason: Shortness of Breath Nf Medication 1 Each (Amlodipine [ Norvasc] 5 Mg)* Patient Own Med 5 mg PO DAILY [facility] Last Admin: 05/20/19 07:43 Dose: 5 mg Nystatin (Nystop) 15 gm TOP BID [facility] Last Admin: 05/20/19 07:41 Dose: 1 applic Ondansetron HCl (Zofran) 4 mg IV Q6H PRN PRN Reason: Nausea/Vomiting Vitamin E (Vitamin E) 400 units PO DAILY [facility] Last Admin: 05/20/19 07:39 Dose: 400 units Discontinued Medications Albuterol/Ipratropium (Duoneb 3.0-0.5 Mg/3 Ml) 3 ml NEB ONETIME ONE Stop: 05/19/19 12:11 Last Admin: 05/19/19 12:24 Dose: 3 ml Atenolol (Tenormin) 50 mg PO DAILY [facility] Last Admin: 05/20/19 07:42 Dose: 50 mg Enoxaparin Sodium (Lovenox) 40 mg SUBCUT Q24H [facility] Last Admin: 05/19/19 16:09 Dose: 40 mg Non-Formulary Medication (Lutein [Lutein]) 20 mg PO DAILY [facility] - Exam General: Alert, Oriented HEENT: Mucous Membr. Moist/[place] Neck: Supple Lungs: Clear to Auscultation, Normal Respiratory Effort Cardiovascular: Irregular Rhythm GI/Abdominal Exam: Normal Bowel Sounds, Soft, Non-Tender Extremities: Normal Inspection, Pedal Edema Skin: Warm, Moist, Rash (red moist area under abdominal folds) Neurological: No New Focal Deficit Sepsis Event Note - Evaluation Sepsis Screening Result: No Definite Risk - Focused Exam Vital Signs: Vital Signs Temp Pulse Pulse Resp BP BP Pulse Ox 05/20/19 11:57 96.8 F 82 16 145/56 H 96 05/20/19 08:00 96.4 F 61 20 138/64 95 05/20/19 07:42 61 138/64 05/20/19 04:00 96.3 F 63 20 148/50 H 98 Date Exam was Performed: 05/20/19 Time Exam was Performed: 13:50 - Problem List & Annotations (1) Chest pain SNOMED Code(s): 85217831 Code(s): R07.9 - CHEST PAIN, UNSPECIFIED Status: Acute Priority: High Current Visit: Yes Qualifiers: Chest pain type: unspecified Qualified Code(s): R07.9 - Chest pain, unspecified (2) Congestive heart failure SNOMED Code(s): 25894233 Code(s): I50.9 - HEART FAILURE, UNSPECIFIED Status: Acute Priority: High Current Visit: Yes Qualifiers: Heart failure type: systolic Heart failure chronicity: acute Qualified Code(s): I50.21 - Acute systolic (congestive) heart failure (3) Dyspnea SNOMED Code(s): 654781466 Code(s): R06.00 - DYSPNEA, UNSPECIFIED Status: Acute Priority: High Current Visit: Yes Qualifiers: Dyspnea type: orthopnea Qualified Code(s): R06.01 - Orthopnea - Problem List Review Problem List Initiated/Reviewed/Updated: Yes - My Orders Last 24 Hours: My Active Orders 05/19/19 20:00 Nystatin [Nystop] 15 gm TOP BID 05/20/19 09:00 Metoprolol Tartrate [Lopressor] 25 mg PO Q12H 05/20/19 09:15 Apixaban [Eliquis] 5 mg PO BID 05/20/19 11:58 Echo Comp wo Cont [US] Routine - Assessment Assessment:: Acute systolic CHF Dyspnea Chest Pain - Plan Plan:: Patient admits to feeling better today. States the pressure on her chest that she felt yesterday is now gone. Is ambulating but admits she is short of breath more with that than with rest. Lung sounds are clear. Edema 3+ pitting in lower legs. Admits has been voiding well. Appetite has been good. Nurses report considerable red rash under abdominal folds consistent with yeast. Was started on Nystatin last evening. Telemetry notes irregular rhythm this am, EKG done, consistent with atrial fib, new onset for patient. Did have a short run of v tack, asymptomatic. Contacted Dr. Alvarenga, cardiology, who evaluated patient last year. Agrees with plan to repeat echo, start metoprolol and Eliquis. Will monitor med tolerance, telemetry. Possible discharge home tomorrow.
[2019-05-20] MEDS: Furosemide 40 MG/4 ML VIAL IVPUSH SCH (14:42)
[2019-05-20] MEDS: LATANOPROST 0.005% EYEBOTH SCH (19:52)
[2019-05-21 07:58] LABS: CHLORIDE,CL 102 mEq/L (98-106); SODIUM,NA 140 mEq/L (136-145)
[2019-05-21] MEDS: Multivitamin Tab PO SCH (07:58)
[2019-05-21] MEDS: Vitamin E (dl-alpha-tocopherol acetate) 400 Unit Cap PO SCH (07:59)
[2019-05-21] MEDS: Calcium Carbonate/Magnesium Oxide/Zinc Oxide Tab PO SCH (08:00)
[2019-05-21] MEDS: Apixaban 5 MG Tab PO SCH (08:00)
[2019-05-21] MEDS: Cholecalciferol (Vitamin D3) 25 MCG Tab PO SCH (08:00)
[2019-05-21] MEDS: LOSARTAN 100 MG PO SCH (08:01)
[2019-05-21] MEDS: ESTRADIOL 1 MG PO SCH (08:02)
[2019-05-21] MEDS: AMLODIPINE 5 MG PO SCH (08:02)
[2019-05-21] MEDS: Nystatin Topical Powder 15 GM Bottle TOP SCH (08:05)
[2019-05-21] MEDS: Metoprolol Tartrate 25 MG Tab PO SCH (08:05)
[2019-05-21 08:06] VITALS: BP 147/70; PULSE 58
[2019-05-21] MEDS: Albuterol/Ipratropium 3.0-0.5 MG/3 ML Neb Soln NEB PRN (08:31)
--- NOTE | 2019-05-21 09:22 | PCM.DCSUM1 ---
Discharge Summary - Hospital Course Free Text/Narrative:: Patient presented to ER with complaints of shortness of breath. Had felt a pressure on her chest, like someone sitting on her. She has been having more difficulty lying flat at night and tolerating activity. States got worse the am of arrival. Labs done in ER with concerns for mild CHF as proBNP higher at 474. Troponin negative. Has chronic edema in her legs but feels it is worse as of late. Chest xray is stable, cardiomegaly noted. Admitted to observation , started on IV Lasix. Diagnosis: Stroke: No Modified Vicco Scale: No Symptoms at All Modified Vicco Scale Score: 0 - Discharge Data Discharge Date: 05/21/19 Discharge Disposition: Home, Self-Care 01 Condition: Fair - Referral to Home Health Primary Care Physician: Regulo Nguyen MD - Discharge Diagnosis/Problem(s) (1) Chest pain SNOMED Code(s): 60865927 ICD Code: R07.9 - CHEST PAIN, UNSPECIFIED Status: Acute Priority: High Qualifiers: Chest pain type: unspecified Qualified Code(s): R07.9 - Chest pain, unspecified (2) Congestive heart failure SNOMED Code(s): 91984861 ICD Code: I50.9 - HEART FAILURE, UNSPECIFIED Status: Acute Priority: High Qualifiers: Heart failure type: systolic Heart failure chronicity: acute Qualified Code(s): I50.21 - Acute systolic (congestive) heart failure (3) Dyspnea SNOMED Code(s): 615488528 ICD Code: R06.00 - DYSPNEA, UNSPECIFIED Status: Acute Priority: High Qualifiers: Dyspnea type: orthopnea Qualified Code(s): R06.01 - Orthopnea - Patient Summary/Data Complications: none Hospital Course: Patient doing well. The pressure in her chest has resolved. Continues to have edema in lower extremities but is voiding well. Lung sounds are diminished but clear. ProBNP has improved, now 184 today. Noted patient now in atrial fib, new onset. Patient placed on Eliquis and switched from atenolol to metoprolol for rate control. Echocardiogram done. Did see Dr. Alvarenga last year for mild to moderate aortic stenosis, he recommended just following at that time. Contacted him for evaluation/consult for further recommendations. Agreed with current plan of meds. If echo shows worsening stenosis, will refer back to cardiology. Does have notable yeast infection in abdominal folds. Have been using Nystop powder and will continue with that or switch to cream at home, whichever is easier for the patient. Will continue Lasix daily. DuoNebs as needed for asthma/shortness of breath. Follow up with Dr. Nguyen next week. - Patient Instructions Diet: Usual Diet as Tolerated Activity: As Tolerated - Discharge Plan *PRESCRIPTION DRUG MONITORING PROGRAM REVIEWED*: Not Applicable *COPY OF PRESCRIPTION DRUG MONITORING REPORT IN PATIENT LISE: Not Applicable Prescriptions/Med Rec: Albuterol/Ipratropium [DuoNeb 3.0-0.5 MG/3 ML] 3 ml NEB Q4H PRN #1 box PRN Reason: Shortness Of Breath/wheezing Apixaban [Eliquis] 5 mg PO BID #60 tablet Furosemide [Lasix] 40 mg PO DAILY #30 tablet Metoprolol Tartrate [Lopressor] 25 mg PO Q12H #60 tablet Nystatin [Nystatin Crm] 30 gm TOP BID #1 tube Home Medications: Home Meds Calcium Carb/D3/Magnesium/Zinc [[place] Mag Zinc + D Tablet] 3 each PO DAILY [History] Cholecalciferol (Vitamin D3) [Vitamin D3] 2,000 unit PO DAILY 06/26/13 [History] Latanoprost [Xalatan 0.005% Ophth Soln] 1 drop EYEBOTH BEDTIME 06/26/13 [History ] Losartan [Cozaar] 100 mg PO DAILY 06/26/13 [History] Lutein 20 mg PO DAILY 06/26/13 [History] Multivitamin/Iron/Folic Acid [Centrum Complete Multivit] 1 each PO DAILY [History] Vitamin E 400 unit PO DAILY 06/26/13 [History] amLODIPine [Norvasc] 5 mg PO DAILY 06/26/13 [History] estradioL [Estradiol] 1 mg PO DAILY 06/26/13 [History] Albuterol Sulfate [Proair Hfa] 2 puff INH Q6H PRN 07/27/16 [History] Meclizine [Antivert] 25 mg PO Q8H PRN 5 Days #24 tab 01/25/19 [Rx] Albuterol/Ipratropium [DuoNeb 3.0-0.5 MG/3 ML] 3 ml NEB Q4H PRN #1 box 05/21/19 [Rx] Apixaban [Eliquis] 5 mg PO BID #60 tablet 05/21/19 [Rx] Furosemide [Lasix] 40 mg PO DAILY #30 tablet 05/21/19 [Rx] Metoprolol Tartrate [Lopressor] 25 mg PO Q12H #60 tablet 05/21/19 [Rx] Nystatin [Nystatin Crm] 30 gm TOP BID #1 tube 05/21/19 [Rx] Patient Handouts: Asthma, Adult, Heart Failure, Atrial Fibrillation Forms: ED Department Discharge Referrals: Regulo Nguyen MD [Primary Care Provider] - (Follow up with Dr. Nguyen on Sunday ) - Discharge Summary/Plan Comment DC Time >30 min.: No - General Info Date of Service: 05/21/19 Admission Dx/Problem (Free Text: Acute CHF Functional Status: Reports: Pain Controlled, Tolerating Diet, Ambulating - Review of Systems General: Reports: Weakness, Fatigue HEENT: Denies: Ear Pain, Sinus Congestion, Rhinitis Pulmonary: Reports: Shortness of Breath. Denies: Cough Cardiovascular: Reports: Edema. Denies: Chest Pain, Lightheadedness Gastrointestinal: Denies: Abdominal Pain, Nausea, Vomiting Genitourinary: Reports: No Symptoms Musculoskeletal: Reports: No Symptoms Skin: Reports: No Symptoms Neurological: Reports: Weakness - Patient Data Vitals - Most Recent: Last Vital Signs Temp 96.2 F 05/21/19 08:00 Pulse 58 L 05/21/19 08:05 Resp 16 05/21/19 08:00 BP 147/70 H 05/21/19 08:05 Pulse Ox 97 05/21/19 08:00 Weight - Most Recent: 371 lb 12.8 oz I&O - Last 24 hours: Intake & Output 05/20/19 05/21/19 05/21/19 22:59 06:59 14:59 Intake Total 1200 500 400 Output Total 1600 800 Balance -400 -300 400 Lab Results - Last 24 hrs: Laboratory Results - last 24 hr 05/20/19 05/21/19 05/21/19 Range/Units 11:02 05:00 05:00 WBC 7.5 (5.0-10.0) 10^3/uL RBC 5.04 (4.00-5.50) 10^6/uL Hgb 15.1 (12.0-16.0) g/dL Hct 46.7 (37.0-47.0) % MCV 92.7 (82.0-94.0) fL MCH 30.0 (27.0-32.0) pg MCHC 32.3 L (33.0-38.0) g/dL RDW Coeff of Ave 14.5 (11.0-15.0) % Plt Count 244 (150-400) 10^3/uL Neut % (Auto) 64.3 (35-85) % Lymph % (Auto) 20.9 (10-55) % [place] % (Auto) 11.6 (0-16) % Eos % (Auto) 2.9 (0-5) % Baso % (Auto) 0.3 (0-3) % Neut # (Auto) 4.81 (1.80-7.00) 10^3/uL Lymph # (Auto) 1.56 (1.00-4.80) 10^3/uL [place] # (Auto) 0.87 H (0.00-0.80) 10^3/uL Eos # (Auto) 0.22 (0.00-0.45) 10^3/uL Baso # (Auto) 0.02 10^3/uL Sodium 140 (136-145) mEq/L Potassium 4.2 (3.5-5.0) mEq/L Chloride 102 (98-106) mEq/L Carbon Dioxide 30 (21-32) mmol/L BUN 19 H (7-18) mg/dL Creatinine 0.8 (0.6-1.0) mg/dL Est Cr Clr Drug Dosing 57.67 mL/min Estimated GFR (MDRD) > 60 (>=60) mL/min Glucose 110 H (75-99) mg/dL Calcium 9.1 (8.4-10.1) mg/dL Magnesium 2.3 (1.8-2.4) mg/dL Troponin I < 0.017 (0.00-0.06) ng/mL NT-Pro-B Natriuret Pep 184 (0-1000) pg/mL PONCHO Results - Last 24 hrs: Microbiology 05/19/19 12:29 Aerobic Blood Culture - Preliminary Blood - Venous NO GROWTH AFTER 1 DAY Anaerobic Blood Culture - Preliminary NO GROWTH AFTER 1 DAY 05/19/19 12:29 Aerobic Blood Culture - Preliminary Blood - Venous - Lab Draw NO GROWTH AFTER 1 DAY Anaerobic Blood Culture - Final Med Orders - Current: Current Medications Acetaminophen (Tylenol) 650 mg PO Q4H PRN PRN Reason: Pain (Mild 1-3)/fever Last Admin: 05/20/19 05:33 Dose: 650 mg Albuterol/Ipratropium (Duoneb 3.0-0.5 Mg/3 Ml) 3 ml NEB Q4H PRN PRN Reason: Shortness Of Breath/wheezing Last Admin: 05/21/19 08:31 Dose: 3 ml Apixaban (Eliquis) 5 mg PO BID [facility] Last Admin: 05/21/19 08:00 Dose: 5 mg Calcium/Magnesium/Zinc (Calcium & Magnesium Plus Zinc) 3 tab PO DAILY [facility] Last Admin: 05/21/19 08:00 Dose: 3 tab Cholecalciferol (Vitamin D3) 50 mcg PO DAILY [facility] Last Admin: 05/21/19 08:00 Dose: 50 mcg Estradiol (Estradiol) 1 mg PO DAILY [facility] Last Admin: 05/21/19 08:02 Dose: 1 mg Furosemide (Lasix) 40 mg IVPUSH Q24H [facility] Last Admin: 05/20/19 14:42 Dose: 40 mg Ibuprofen (Motrin) 600 mg PO Q6H PRN PRN Reason: Pain (mild 1-3) Latanoprost (Xalatan 0.005% Oph Soln) 0 ml EYEBOTH BEDTIME [facility] Last Admin: 05/20/19 19:52 Dose: 1 drop Losartan Potassium (Cozaar) 100 mg PO DAILY [facility] Last Admin: 05/21/19 08:01 Dose: 100 mg Meclizine HCl (Antivert) 25 mg PO Q8H PRN PRN Reason: DIZZINESS Metoprolol Tartrate (Lopressor) 25 mg PO Q12H [facility] Last Admin: 05/21/19 08:05 Dose: 25 mg Multivitamins/Minerals/Vitamin C (Tab-A-Carla) 1 tab PO DAILY [facility] Last Admin: 05/21/19 07:58 Dose: 1 tab Nf Med 1 Each ( Albuterol Sulfate [ Proair Hfa] 2 Puff)* *Pt Own Med 2 puff INH Q6H PRN PRN Reason: Shortness of Breath Nf Medication 1 Each (Amlodipine [ Norvasc] 5 Mg)* Patient Own Med 5 mg PO DAILY [facility] Last Admin: 05/21/19 08:02 Dose: 5 mg Nystatin (Nystop) 15 gm TOP BID [facility] Last Admin: 05/21/19 08:05 Dose: 1 applic Ondansetron HCl (Zofran) 4 mg IV Q6H PRN PRN Reason: Nausea/Vomiting Vitamin E (Vitamin E) 400 units PO DAILY [facility] Last Admin: 05/21/19 07:59 Dose: 400 units Discontinued Medications Albuterol/Ipratropium (Duoneb 3.0-0.5 Mg/3 Ml) 3 ml NEB ONETIME ONE Stop: 05/19/19 12:11 Last Admin: 05/19/19 12:24 Dose: 3 ml Atenolol (Tenormin) 50 mg PO DAILY [facility] Last Admin: 05/20/19 07:42 Dose: 50 mg Enoxaparin Sodium (Lovenox) 40 mg SUBCUT Q24H [facility] Last Admin: 05/19/19 16:09 Dose: 40 mg Non-Formulary Medication (Lutein [Lutein]) 20 mg PO DAILY [facility] - Exam General: Reports: Alert, Oriented HEENT: Reports: Mucous Membr. Moist/[employer] Neck: Reports: Supple Lungs: Reports: Decreased Breath Sounds Cardiovascular: Reports: Irregular Rhythm GI/Abdominal Exam: Normal Bowel Sounds, Soft, Non-Tender Extremities: Normal Inspection, Pedal Edema Wound/Incisions: Reports: Erythema Improving Neurological: Reports: No New Focal Deficit
== END 2019-05-21 08:55 | disposition home or self-care (01) ==
LOC: CC.ED 11:39 → CC.MS 14:10 → UNDOADMOB 14:31
PROVIDERS: ADMIT Nurse Practitioner; ATTEND Family Medicine
DX: I11.0 Hypertensive heart disease with heart failure (principal); I50.21 Acute systolic (congestive) heart failure; I48.91 Unspecified atrial fibrillation; I35.0 Nonrheumatic aortic (valve) stenosis; J45.909 Unspecified asthma, uncomplicated; B37.9 Candidiasis, unspecified; M19.90 Unspecified osteoarthritis, unspecified site; Z79.899 Other long term (current) drug therapy; Z79.82 Long term (current) use of aspirin; Z88.1 Allergy status to other antibiotic agents; Z88.8 Allergy status to other drugs, medicaments and biological substances
CPT/HCPCS: 36415; 71046; 80048; 80053; 82550; 83605; 83735; 83880; 84484; 85025; 86140; 87040; 93005; 93306; 94640; 96372; 96374; 96376; 99285-25; A9270-GY; G0378; J1650; J1940; J7620-GY

== ENCOUNTER → 2019-12-18 | Day surgery (SDC) | payer BC ==
[~2019-12-18] MED LIST changes: -Albuterol/Ipratropium 3.0-0.5 MG/3 ML Neb Soln NEB ONE; +Bacitracin/Neomycin/Polymyxin B Oint 0.9 GM U/D Packet ONE; +Lidocaine 1% with EPINEPHrine 1:100,000 20 ML MDV ONE
[2019-12-18 12:52] VITALS: BP 187/83; PULSE 69
--- NOTE | 2019-12-18 15:10 | OR ---
DATE OF OPERATION: 12/18/2019 PREOPERATIVE DIAGNOSIS: SKIN LESION ON TOP OF THE SCALP, SUSPICIOUS FOR A BASAL CELL CARCINOMA. POSTOPERATIVE DIAGNOSIS: SKIN LESION ON TOP OF THE SCALP, SUSPICIOUS FOR A BASAL CELL CARCINOMA. SURGEON: Arvind Marquez MD PROCEDURE: WIDE LOCAL EXCISION OF 0.5 CM LESION ON THE TOP OF THE SCALP. ANESTHESIA: Local. SPECIMEN: Scalp lesion. INDICATIONS: This 64-year-old female has a nodular-appearing lesion on the top of the scalp. This almost has the appearance of a pigmented basal cell carcinoma. It is, otherwise, asymptomatic. DESCRIPTION OF PROCEDURE: After adequate preparation, an elliptical skin incision was made around the 0.5 cm lesion. I erred on the side that this is possibly benign and did not do a 4 mm circumferential margin around the lesion. We will take care of that later if the pathology does show this to be a basal cell, but anyway there is at least a 2-mm margin on each side of the lesion, which as above the lesion measured 0.5 cm in diameter. This was carried down full-thickness to the fascia of the scalp. Hemostasis was controlled actually with the epinephrine local anesthesia. 1-0 Vicryl suture was used to close the deep layer of the wound and interrupted 2-0 nylon sutures were used for the skin. BPB/MODL /[id number]
== END ==
LOC: CC.SDS 10:00
PROVIDERS: ATTEND Surgery
DX: D23.4 Other benign neoplasm of skin of scalp and neck (principal); J44.9 Chronic obstructive pulmonary disease, unspecified; I11.0 Hypertensive heart disease with heart failure; I50.9 Heart failure, unspecified; E11.9 Type 2 diabetes mellitus without complications; E66.01 Morbid (severe) obesity due to excess calories; M85.80 Other specified disorders of bone density and structure, unspecified site; M19.019 Primary osteoarthritis, unspecified shoulder; E55.9 Vitamin D deficiency, unspecified; M17.10 Unilateral primary osteoarthritis, unspecified knee; Z88.6 Allergy status to analgesic agent; Z88.8 Allergy status to other drugs, medicaments and biological substances; Z88.1 Allergy status to other antibiotic agents; Z79.899 Other long term (current) drug therapy; Z68.44 Body mass index [BMI] 60.0-69.9, adult

== ENCOUNTER → 2021-10-07 | Day surgery (SDC) | payer MEDICARE, BC ==
[~2021-10-07] MED LIST changes: -Bacitracin/Neomycin/Polymyxin B Oint 0.9 GM U/D Packet ONE; +Flumazenil 0.1 MG/ML 10 ML MDV ONE; +Ketamine 200 MG/20 ML MDV ONE; +Lactated Ringers 1,000 ML IV SCH; -Lidocaine 1% with EPINEPHrine 1:100,000 20 ML MDV ONE; +Midazolam 1 MG/ML 2 ML SDV ONE; +Phenylephrine 1% 10 MG/ML SDV ONE; +Propofol 200 MG/20 ML SDV ONE
[2021-10-07 12:42] VITALS: BP 134/54; PULSE 56
== END ==
LOC: CC.SDS 08:23
PROVIDERS: ATTEND Family Medicine
DX: Z12.11 Encounter for screening for malignant neoplasm of colon (principal); K63.5 Polyp of colon; K57.30 Diverticulosis of large intestine without perforation or abscess without bleeding; J45.909 Unspecified asthma, uncomplicated; I50.9 Heart failure, unspecified; G89.29 Other chronic pain; I11.0 Hypertensive heart disease with heart failure; E66.01 Morbid (severe) obesity due to excess calories; I48.0 Paroxysmal atrial fibrillation; R73.03 Prediabetes; I35.0 Nonrheumatic aortic (valve) stenosis; E55.9 Vitamin D deficiency, unspecified; Z88.8 Allergy status to other drugs, medicaments and biological substances; Z88.1 Allergy status to other antibiotic agents; Z79.899 Other long term (current) drug therapy; Z79.01 Long term (current) use of anticoagulants; Z68.44 Body mass index [BMI] 60.0-69.9, adult
CPT/HCPCS: 00812; J2250; J2370; J2704; J7120

== ENCOUNTER 2024-12-09 09:55 | Inpatient (IN) | payer MEDICARE, BC ==
[2024-12-09 10:44] LABS: BASOPHILS ABSOLUTE AUTO 0.05 10^3/uL (0.00-0.50); BASOPHILS PERCENT AUTO 0.9 % (0-1); EOSINOPHILS ABSOLUTE AUTO 0.11 10^3/uL (0.00-1.50); EOSINOPHILS PERCENT AUTO 2.0 % (0-6); IMMATURE GRAN ABSOLUTE AUTO 0.01 10^3/uL (0.00-0.49); IMMATURE GRAN PERCENT AUTO 0.2 % (0.0-4.9); LYMPHOCYTES ABSOLUTE AUTO 1.12 10^3/uL (0.60-5.00); LYMPHOCYTES PERCENT AUTO 20.1 % (24-44); MONOCYTES ABSOLUTE AUTO 0.64 10^3/uL (0.00-1.50); MONOCYTES PERCENT AUTO 11.5 % (0-10); NEUTROPHILS ABSOLUTE AUTO 3.65 x10^3/uL (1.80-8.00); NEUTROPHILS PERCENT AUTO 65.3 % (41-71); PLATELET COUNT,PLT 217 10^3/uL (150-400); RED BLOOD CELL COUNT 4.63 x10^6/uL (4.00-5.50); WHITE BLOOD CELL COUNT,WBC 5.6 10^3/uL (4.0-11.0)
[2024-12-09 11:02] LABS: ALANINE AMINOTRANSFERASE,ALT 25.0 U/L (12-78); ASPARTATE AMNIOTRANSFERASE,AST 22.0 U/L (15-37); BILIRUBIN TOTAL 1.0 mg/dL (0.0-1.0); BLOOD UREA NITROGEN,BUN 18.0 mg/dL (7-18); CARBON DIOXIDE,CO2 31.0 mmol/L (21-32); CHLORIDE,CL 100.0 mEq/L (98-106); CREATININE 0.9 mg/dL (0.6-1.0); EST CRCL DRUG DOSING (CG) 45.14 mL/min; GLUCOSE RANDOM 106.0 mg/dL (75-99); POTASSIUM,K 4.5 mEq/L (3.5-5.0); PRO B-TYPE NATRIUR PEPT,BNPPRO 891.0 pg/mL (0-1000); PROTEIN TOTAL,TP 8.2 g/dL (6.4-8.2); SODIUM,NA 137.0 mEq/L (136-145)
[2024-12-09 11:03] LABS: ESTIMATED GFR 70.0 mL/min (>=60)
[2024-12-09] MEDS ORDERED: Ondansetron 4 MG/2 ML SDV IV PRN (12:02)
[2024-12-09] MEDS ORDERED: Nystatin Crm 30 GM Tube TOP PRN (12:02)
[2024-12-09] MEDS ORDERED: Ondansetron 4 MG Tab.DIS PO PRN (12:02)
[2024-12-09] MEDS: Furosemide 40 MG/4 ML VIAL IVPUSH ONE (12:20)
[2024-12-09 13:16] LABS: APPEARANCE,URINE CLEAR (CLEAR); GLUCOSE,URINE NEGATIVE (NEGATIVE); OCCULT BLOOD,URINE NEGATIVE (NEGATIVE)
[2024-12-09] MEDS: Furosemide 40 MG/4 ML VIAL IVPUSH SCH (16:24)
[2024-12-09] MEDS: Potassium Chloride 20 MEQ Tab.ER PO SCH (19:30)
[2024-12-10 07:42] LABS: BASOPHILS ABSOLUTE AUTO 0.08 10^3/uL (0.00-0.50); BASOPHILS PERCENT AUTO 1.1 % (0-1); EOSINOPHILS ABSOLUTE AUTO 0.17 10^3/uL (0.00-1.50); EOSINOPHILS PERCENT AUTO 2.3 % (0-6); IMMATURE GRAN ABSOLUTE AUTO 0.01 10^3/uL (0.00-0.49); IMMATURE GRAN PERCENT AUTO 0.1 % (0.0-4.9); LYMPHOCYTES ABSOLUTE AUTO 1.08 10^3/uL (0.60-5.00); LYMPHOCYTES PERCENT AUTO 14.7 % (24-44); MONOCYTES ABSOLUTE AUTO 0.84 10^3/uL (0.00-1.50); MONOCYTES PERCENT AUTO 11.5 % (0-10); NEUTROPHILS ABSOLUTE AUTO 5.15 x10^3/uL (1.80-8.00); NEUTROPHILS PERCENT AUTO 70.3 % (41-71); PLATELET COUNT,PLT 217 10^3/uL (150-400); RED BLOOD CELL COUNT 4.76 x10^6/uL (4.00-5.50); WHITE BLOOD CELL COUNT,WBC 7.3 10^3/uL (4.0-11.0)
[2024-12-10] MEDS: Vitamin E (dl-alpha-tocopherol acetate) 400 Unit Cap PO SCH (07:42)
[2024-12-10] MEDS: Cholecalciferol (Vitamin D3) 5,000 UNIT Tab PO SCH (07:42)
[2024-12-10] MEDS: Calcium Carbonate/Vitamin D3 1250 MG-5 MCG Tab PO SCH (07:45)
[2024-12-10 08:02] LABS: ALANINE AMINOTRANSFERASE,ALT 24.0 U/L (12-78); ASPARTATE AMNIOTRANSFERASE,AST 22.0 U/L (15-37); BILIRUBIN TOTAL 1.2 mg/dL (0.0-1.0); BLOOD UREA NITROGEN,BUN 21.0 mg/dL (7-18); CARBON DIOXIDE,CO2 30.0 mmol/L (21-32); CHLORIDE,CL 100.0 mEq/L (98-106); CREATININE 0.9 mg/dL (0.6-1.0); EST CRCL DRUG DOSING (CG) 45.14 mL/min; GLUCOSE RANDOM 101.0 mg/dL (75-99); POTASSIUM,K 4.4 mEq/L (3.5-5.0); PROTEIN TOTAL,TP 8.9 g/dL (6.4-8.2); SODIUM,NA 137.0 mEq/L (136-145)
[2024-12-10 08:03] LABS: ESTIMATED GFR 70.0 mL/min (>=60)
[2024-12-10] MEDS: Furosemide 20 MG/2 ML VIAL IVPUSH ONE (11:44)
[2024-12-10] MEDS: Non-Formulary Medication 1 Each (Lutein [Lutein] 20 MG Capsule) PO SCH (11:49)
[2024-12-10] MEDS: Furosemide 40 MG/4 ML VIAL IVPUSH SCH (15:03)
[2024-12-11 07:25] LABS: BASOPHILS ABSOLUTE AUTO 0.06 10^3/uL (0.00-0.50); BASOPHILS PERCENT AUTO 0.9 % (0-1); EOSINOPHILS ABSOLUTE AUTO 0.20 10^3/uL (0.00-1.50); EOSINOPHILS PERCENT AUTO 3.1 % (0-6); IMMATURE GRAN ABSOLUTE AUTO 0.01 10^3/uL (0.00-0.49); IMMATURE GRAN PERCENT AUTO 0.2 % (0.0-4.9); LYMPHOCYTES ABSOLUTE AUTO 1.23 10^3/uL (0.60-5.00); LYMPHOCYTES PERCENT AUTO 19.2 % (24-44); MONOCYTES ABSOLUTE AUTO 0.85 10^3/uL (0.00-1.50); MONOCYTES PERCENT AUTO 13.3 % (0-10); NEUTROPHILS ABSOLUTE AUTO 4.06 x10^3/uL (1.80-8.00); NEUTROPHILS PERCENT AUTO 63.3 % (41-71); PLATELET COUNT,PLT 240 10^3/uL (150-400); RED BLOOD CELL COUNT 4.79 x10^6/uL (4.00-5.50); WHITE BLOOD CELL COUNT,WBC 6.4 10^3/uL (4.0-11.0)
[2024-12-11 07:56] LABS: ALANINE AMINOTRANSFERASE,ALT 30.0 U/L (12-78); ASPARTATE AMNIOTRANSFERASE,AST 24.0 U/L (15-37); BILIRUBIN TOTAL 1.1 mg/dL (0.0-1.0); BLOOD UREA NITROGEN,BUN 28.0 mg/dL (7-18); CARBON DIOXIDE,CO2 33.0 mmol/L (21-32); CHLORIDE,CL 99.0 mEq/L (98-106); CREATININE 1.0 mg/dL (0.6-1.0); EST CRCL DRUG DOSING (CG) 40.63 mL/min; ESTIMATED GFR 61.0 mL/min (>=60); GLUCOSE RANDOM 103.0 mg/dL (75-99); POTASSIUM,K 4.3 mEq/L (3.5-5.0); PROTEIN TOTAL,TP 8.8 g/dL (6.4-8.2); SODIUM,NA 137.0 mEq/L (136-145)
[2024-12-11] MEDS: Nystatin Topical Powder 15 GM Bottle TOP SCH (19:52)
[2024-12-12 07:41] LABS: BASOPHILS ABSOLUTE AUTO 0.07 10^3/uL (0.00-0.50); BASOPHILS PERCENT AUTO 1.2 % (0-1); EOSINOPHILS ABSOLUTE AUTO 0.13 10^3/uL (0.00-1.50); EOSINOPHILS PERCENT AUTO 2.3 % (0-6); IMMATURE GRAN ABSOLUTE AUTO 0.01 10^3/uL (0.00-0.49); IMMATURE GRAN PERCENT AUTO 0.2 % (0.0-4.9); LYMPHOCYTES ABSOLUTE AUTO 1.17 10^3/uL (0.60-5.00); LYMPHOCYTES PERCENT AUTO 20.7 % (24-44); MONOCYTES ABSOLUTE AUTO 0.69 10^3/uL (0.00-1.50); MONOCYTES PERCENT AUTO 12.2 % (0-10); NEUTROPHILS ABSOLUTE AUTO 3.58 x10^3/uL (1.80-8.00); NEUTROPHILS PERCENT AUTO 63.4 % (41-71); PLATELET COUNT,PLT 242 10^3/uL (150-400); RED BLOOD CELL COUNT 4.80 x10^6/uL (4.00-5.50); WHITE BLOOD CELL COUNT,WBC 5.7 10^3/uL (4.0-11.0)
[2024-12-12 07:43] LABS: ALANINE AMINOTRANSFERASE,ALT 29.0 U/L (12-78); ASPARTATE AMNIOTRANSFERASE,AST 23.0 U/L (15-37); BILIRUBIN TOTAL 0.9 mg/dL (0.0-1.0); BLOOD UREA NITROGEN,BUN 27.0 mg/dL (7-18); CARBON DIOXIDE,CO2 33.0 mmol/L (21-32); CHLORIDE,CL 100.0 mEq/L (98-106); CREATININE 0.9 mg/dL (0.6-1.0); EST CRCL DRUG DOSING (CG) 45.14 mL/min; GLUCOSE RANDOM 97.0 mg/dL (75-99); POTASSIUM,K 4.5 mEq/L (3.5-5.0); PROTEIN TOTAL,TP 8.4 g/dL (6.4-8.2); SODIUM,NA 138.0 mEq/L (136-145)
[2024-12-12 07:45] LABS: ESTIMATED GFR 70.0 mL/min (>=60)
[2024-12-12 08:03] VITALS: BP 128/64
[2024-12-12 09:33] VITALS: PULSE 71
== END 2024-12-12 09:35 | disposition swing bed (61) | DRG 291 ==
LOC: CC.ED 09:55 → CC.MS 11:46 → UNDOADMIN 11:56
PROVIDERS: ADMIT Nurse Practitioner; ATTEND Nurse Practitioner
DX: I11.0 Hypertensive heart disease with heart failure (principal); J96.01 Acute respiratory failure with hypoxia; Z68.45 Body mass index [BMI] 70 or greater, adult; E66.9 Obesity, unspecified; Z88.2 Allergy status to sulfonamides; I50.9 Heart failure, unspecified; E66.01 Morbid (severe) obesity due to excess calories; H40.9 Unspecified glaucoma; I48.91 Unspecified atrial fibrillation; J45.909 Unspecified asthma, uncomplicated; H26.9 Unspecified cataract; M19.90 Unspecified osteoarthritis, unspecified site; M81.0 Age-related osteoporosis without current pathological fracture; Z90.49 Acquired absence of other specified parts of digestive tract; Z79.899 Other long term (current) drug therapy; Z79.01 Long term (current) use of anticoagulants; Z98.890 Other specified postprocedural states; Z88.8 Allergy status to other drugs, medicaments and biological substances
CPT/HCPCS: 36415; 71045; 80053; 81003; 83735; 83880; 84484; 85025; 86140; 87426-QW; 93005; 93010; 94640; 97110-GP; 97161-GP; 99223; 99232; 99233; 99239; 99285; A9270-GY; J1938

== ENCOUNTER 2024-12-12 09:35 | Inpatient (IN) | payer MEDICARE, BC ==
[2024-12-12] MEDS ORDERED: Nystatin Crm 30 GM Tube TOP PRN (10:06)
[2024-12-12] MEDS ORDERED: Ondansetron 4 MG Tab.DIS PO PRN (10:06)
[2024-12-12] MEDS ORDERED: Ondansetron 4 MG/2 ML SDV IV PRN (10:06)
[2024-12-12] MEDS: Furosemide 40 MG/4 ML VIAL IVPUSH SCH (15:44)
[2024-12-12] MEDS: Potassium Chloride 20 MEQ Tab.ER PO SCH (19:45)
[2024-12-12] MEDS: Nystatin Topical Powder 15 GM Bottle TOP SCH (19:53)
[2024-12-13] MEDS: Calcium Carbonate/Vitamin D3 1250 MG-5 MCG Tab PO SCH (08:06)
[2024-12-13] MEDS: Vitamin E (dl-alpha-tocopherol acetate) 400 Unit Cap PO SCH (08:06)
[2024-12-13] MEDS: Cholecalciferol (Vitamin D3) 5,000 UNIT Tab PO SCH (08:07)
[2024-12-15] MEDS: Furosemide 100 MG/10 ML SDV IVPUSH SCH (15:57)
[2024-12-17 10:53] VITALS: BP 122/74; PULSE 88
== END 2024-12-17 10:00 | DRG 948 ==
LOC: UNDOADMIN 09:35 → CC.MS 09:35 → UNDOADMIN 15:32 → CC.MS 15:32 → UNDODISIN 12-17 10:00
PROVIDERS: ADMIT Physician Assistant Medical; ATTEND Physician Assistant Medical
DX: R53.1 Weakness (principal); I50.9 Heart failure, unspecified; E66.01 Morbid (severe) obesity due to excess calories; Z79.899 Other long term (current) drug therapy; Z79.01 Long term (current) use of anticoagulants
CPT/HCPCS: 87426-QW; 94640; 97110-GP; 97161-GP; 99315; A9270-GY; J1938